=== PATIENT | female | born 1990 | race Two or more races ===

== ENCOUNTER 2019-05-24 19:53 | Emergency (ER) | payer OTHER ==
[~2019-05-24] VITALS: Ht 170.2 cm; Wt 87.1 kg
[~2019-05-24 19:53] MED LIST: IBUPROFEN800 MG PO; MEDROLPACK PO
[2019-05-24] MEDS ORDERED: NAPROXEN SODIU550 MG (20:24)
[2019-05-24] MEDS ORDERED: TORADOL60 MG (20:25)
[2019-05-24] MEDS ORDERED: NORFLEX (20:29)
== END 2019-05-24 21:13 | disposition home or self-care (01) ==
LOC: ER
DX: S30.0XXA Contusion of lower back and pelvis, initial encounter (principal); M51.86 Other intervertebral disc disorders, lumbar region; W18.09XA Striking against other object with subsequent fall, initial encounter; Y93.89 Activity, other specified; Y92.018 Other place in single-family (private) house as the place of occurrence of the external cause; Y99.8 Other external cause status